=== PATIENT | male | born 1960 | race Caucasian/White ===

== ENCOUNTER 2018-12-03 13:46 | Outpatient (CLI) ==
--- NOTE | 2018-12-03 14:16 | DI ---
EXAM: Five views of the cervical spine. History: Neck pain. Findings: No acute fracture. No prevertebral soft tissue swelling. Predental space is not widened. 2 mm anterolisthesis of C3 on C4. The oblique images demonstrate moderate left-sided bony neural f oraminal narrowing at C3-4 and mild to moderate right-sided bony neural foraminal narrowing at C4-5 s econdary to uncovertebral and facet hypertrophy. Mild multilevel disc space narrowing with a few sma ll osteophytes. Impression: 1. No acute fracture of the cervical spine. 2. Minimal anterolisthesis of C3 on C4. 3. Degenerative changes. If symptoms persist, recommend MRI of the cervical spine
== END 2018-12-03 13:47 | disposition home or self-care (01) ==
LOC: RAD 13:46
PROVIDERS: ATTEND Family Medicine
DX: M54.2 Cervicalgia (principal)